=== PATIENT | male | born 1990 | race Caucasian/White ===

== ENCOUNTER 2021-02-01 17:06 | Outpatient (CLI) | payer OTHER, SELFPAY ==
--- NOTE | ~2021-02-01 | XR_ITS ---
EXAMINATION: XR chest 2V DATE: 02/01/2021 17:56 INDICATION: Spondyloarthritis TECHNIQUE: PA and lateral views of the chest are obtained. COMPARISON: None available FINDINGS: The lungs are free of acute opacities. There is no pleural effusion or pneumothorax. The ca rdiomediastinal silhouette is normal. The visualized bones and soft tissues are unremarkable. IMPRESSION: 1. No acute cardiopulmonary abnormality. Reviewed, dictated and finalized at location B.
--- NOTE | ~2021-02-01 | XR_ITS ---
EXAMINATION: XR ankle LT 2V, XR foot LT min 3V, XR foot RT min 3V, XR ankle RT 2V DATE: 02/01/2021 17:56 INDICATION: Spondylarthritis TECHNIQUE: 1. Anteroposterior and lateral view of the left ankle were obtained. 2. Dorsoplantar, two oblique and lateral views of the left foot were obtained. 3. Anteroposterior and lateral view of the right ankle were obtained. 4. Dorsoplantar, two oblique and lateral views of the right foot were obtained. COMPARISON: None. FINDINGS: Left foot and ankle: Alignment of the left foot and ankle is normal. No fracture or osteochondral lesion. Joint spaces are well maintained. No ankle joint effusion. Tiny plantar calcaneal spur. Bone island at the left calca neus. The soft tissues are unremarkable. Right foot and ankle: Alignment of the right foot and ankle is normal. No fracture or osteochondral lesion. Joint spaces ar e well maintained. No ankle joint effusion. Tiny plantar calcaneal spur. The soft tissues are unremar kable. IMPRESSION: 1. Tiny bilateral plantar calcaneal spurs. Otherwise unremarkable bilateral feet and ankle radiograph s Reviewed, dictated and finalized at location A. IMPRESSION: 1. Tiny bilateral plantar calcaneal spurs. Otherwise unremarkable bilateral fee t and ankle radiographs IMPRESSION: 1. Tiny bilateral plantar calcaneal spurs. Otherwise unremarkable bilateral fee t and ankle radiographs IMPRESSION: 1. Tiny bilateral plantar calcaneal spurs. Otherwise unremarkable bilateral fee t and ankle radiographs
--- NOTE | ~2021-02-01 | XR_ITS ---
EXAMINATION: HAND-VINCE ARTHRITIS 3+VIEWS DATE: 02/01/2021 17:56 INDICATION: Spondylarthritis TECHNIQUE: Posteroanterior, lateral, and oblique views of the left and of the right hands as well as a ballcatchers view of both hands were obtained. COMPARISON: None. FINDINGS: Bone alignment and joint spaces are normal at the bilateral hands and wrists. No fracture. No erosion s to suggest an inflammatory arthritis. Soft tissues are unremarkable. IMPRESSION: 1. Negative bilateral hand radiographs. Reviewed, dictated and finalized at location A.
== END 2021-02-01 17:07 ==
PROVIDERS: Visit Provider Physician Assistant Medical
DX: M47.819 Spondylosis without myelopathy or radiculopathy, site unspecified (principal); Z79.899 Other long term (current) drug therapy; M77.32 Calcaneal spur, left foot; M77.31 Calcaneal spur, right foot
CPT/HCPCS: 71046; 73130; 73600; 73630

== ENCOUNTER 2021-02-16 16:09 | Outpatient (CLI) | payer OTHER, SELFPAY ==
--- NOTE | ~2021-02-16 | XR_ITS ---
XR sacroiliac joints min 3V DATE: 02/16/2021 16:32 INDICATION: Low back pain TECHNIQUE: AP and oblique views COMPARISON: None FINDINGS: The sacral iliac joints are intact without fracture, dislocation, ankylosis or erosive laboy ge. The pubic symphysis is normally aligned. There is a prominent amount of fecal material in the col on. IMPRESSION: Negative sacroiliac joints Reviewed, dictated and finalized at Location A. Reviewed, dictated and finalized at location B. IMPRESSION: Negative sacroiliac joints
--- NOTE | ~2021-02-16 | XR_ITS ---
XR lumbar spine 2-3V DATE: 02/16/2021 16:32 INDICATION: Low back pain TECHNIQUE: AP, lateral, coned lateral lumbosacral views COMPARISON: None FINDINGS: Normal alignment of the lumbar spine. No fracture or bone destruction. The included lower t horacic and lumbar pedicles are intact. Lumbar and upper sacral interspaces are well preserved. The t he included portions of the sacral iliac joints appear normal. There is a prominent amount of fecal material in the colon. IMPRESSION: No significant abnormality of the lumbar spine Reviewed, dictated and finalized at location B.
== END 2021-02-16 16:10 ==
PROVIDERS: Visit Provider Physician Assistant Medical
DX: M47.819 Spondylosis without myelopathy or radiculopathy, site unspecified (principal); Z51.81 Encounter for therapeutic drug level monitoring; Z79.899 Other long term (current) drug therapy
CPT/HCPCS: 72100; 72202

== ENCOUNTER 2021-06-20 18:25 | Emergency (ER) | payer OTHER, SELFPAY ==
[2021-06-20 19:28] VITALS: BP 104/69; PULSE 105; RESP 17; TEMP 37.3; O2SAT 98
[2021-06-20 19:41] LABS: Basophils Percent Auto 0.2 % (0.2-1.2); Eosinophils Absolute Auto 0.1 K/mm3 (0-0.3); Eosinophils Percent Auto 0.4 % (0-4.4); Hematocrit 47.5 % (42.0-52.0); Hemoglobin 16.7 g/dL (14.0-18.0); Immature Granulocyte Absolute 0.05 K/mm3 (0.00-0.031); Immature Granulocyte Percent A 0.3 % (0-0.5); Lymphocytes Absolute Auto 0.27 K/mm3 (0.9-3.2); Lymphocytes Percent Auto 1.8 % (18.3-44.2); Mean Corpuscular HGB Conc 35.2 g/dl (32-36); Mean Corpuscular Hemoglobin 30.8 pg (26-34); Mean Corpuscular Volume 87.6 fl (80-100); Mean Platelet Volume 9.3 fl (7.4-10.4); Monocytes Absolute Auto 0.4 K/mm3 (0.1-0.6); Neutrophils Absolute Auto 13.9 K/mm3 (1.3-6.7); Neutrophils Percent Auto 94.3 % (45.5-73.1); Platelet Count Result 199 k/mm3 (150-375); Red Blood Count 5.42 M/mm3 (4.6-6.20); Red Cell Distribution Width 12.5 % (11.5-14.5); White Blood Count 14.7 K/mm3 (4.5-10.0)
[2021-06-20 19:50] LABS: Alanine Aminotransferase 16 U/L (4-50); Albumin Level 4.5 g/dL (3.5-5.1); Alkaline Phosphatase 53 U/L (38-126); Anion Gap 8 mmol/L (8-16); Aspartate Amino Transferase 33 U/L (17-59); Bilirubin,Total 1.9 mg/dL (0.2-1.3); Blood Urea Nitrogen 17 mg/dL (9-20); Calcium 9.3 mg/dL (8.4-10.2); Carbon Dioxide 27 mmol/L (22-30); Chloride 101 mmol/L (98-107); Estimated CRCL calculation 89 ml/min; Estimated Glomerular Filt Rate > 60; Glucose 105 mg/dL (65-110); Lipase 61 U/L (23-300); Potassium 3.8 mmol/L (3.4-5.0); Sodium 136 mmol/L (137-145)
--- NOTE | 2021-06-20 20:18 | ED.NAVMDI ---
HPI - Nausea/Vomiting/Diarrhea General Chief complaint: Nausea/Vomiting/Diarrhea Stated complaint: n/v Time Seen by Provider: 06/20/21 20:04 Source: patient History of Present Illness HPI Narrative: Patient presents with nausea vomiting and diarrhea. Patient ports he woke up with his symptoms of a persisted all day. Reports he had hard time keeping fluids down so he was concerned about dehydration came to the ER for evaluation. Reports multiple family members with similar symptoms he denies recent antibiotics he denies any blood or bile or melena he denies recent camping trips or drinking from streams. Reports subjective chills. Reports abdominal soreness in the epigastric area without radiation thought to be related to his emesis. Related Data Allergies Allergy/AdvReac Type Severity Reaction Status Date / Time No Known Allergies Allergy Verified 06/20/21 21:48 Review of Systems Review of Systems: CONSTITUTIONAL: Denies fever, chills, or sweats. EYES: Denies visual changes, redness, or discharge. ENT: Denies rhinorrhea, congestion, sore throat, or otalgia. CARDIOVASCULAR: Denies chest pain, palpitations, or edema. RESPIRATORY: Denies cough or dyspnea. GASTROINTESTINAL: Abdominal pain nausea vomiting diarrhea GENITOURINARY: Denies dysuria or hematuria. SKIN: Denies rash or itching. MUSCULOSKELETAL: Denies back pain, joint pain, or myalgia. NEUROLOGIC: Denies headache, numbness, dizziness, or weakness. PSYCHIATRIC: Denies anxiety or depression. All systems reviewed & are unremarkable except as noted in HPI and below PMFSH Past Medical History Medical History (Updated 06/21/21 @ 00:00 by Vida Hays) Patient denies significant medical history Social History Social History (Updated 06/20/21 @ 20:20 by Pranav Romero MD) Substance use: never Exam Narrative: GENERAL: Well-appearing, well-nourished, and in no acute distress. HEAD: Normocephalic, atraumatic. EYES: PERRLA and EOMI. ENT: Nares clear, no rhinorrhea or epistaxis. Mucous membranes moist. NECK: Supple. No masses. No JVD CHEST: Clear to auscultation. No respiratory distress. No wheezes rales or rhonchi HEART: Regular rate and rhythm. No murmur heard. Normal peripheral pulses. ABDOMEN: Minimal pain with deep palpation in the epigastric area negative Castro's no rebound or guarding soft, nondistended. EXTREMITIES: Normal range of motion. No edema. SKIN: Warm, dry, no rash. NEURO: No focal deficits. Alert and oriented x3. PSYCH: Normal mood and affect. Course Reevaluation(s) Reevaluation #1: Patient ports feeling much improved after fluids and Zofran. Labs reviewed with patient. Patient comfortable with outpatient plan. Date: 06/20/21 Time: 22:15 Vital Signs Vital signs: Vital Signs Temperature 37.3 C 06/20/21 19:28 Pulse Rate 105 H 06/20/21 19:28 Respiratory Rate 17 06/20/21 19:28 Blood Pressure 104/69 06/20/21 19:28 Pulse Oximetry 98 06/20/21 19:28 Temperature 37.3 C 06/20/21 19:28 Pulse Rate 100 06/20/21 23:06 Respiratory Rate 16 06/20/21 23:06 Blood Pressure 121/63 06/20/21 23:06 Pulse Oximetry 98 06/20/21 23:06 MDM - Nausea/Vomiting/Diarrhea MDM Narrative Medical decision making narrative: H&P as above, vss, pt looks clinically well, exam with nonacute abdomen, labs with leukocytosis otherwise clinically unremarkable, additional labs/img considered. symptomatic relief available as needed, patient treated with Zofran and fluids on reevaluation pt continues to looks clinically well, reports large improvement in symptoms. Suspect viral gastroenteritis given multiple family others with similar symptoms, dns severe sepsis, severe dehydration, perforation, small bowel obstruction, pancreatitis, appendicitis, cholecystitis. plan to tx/monitor as op w/ pcm f/u findings/plan discussed with pt, pt agree/comfortable with plan, return precautions given Lab Data Result diagrams: 06/20/21 19:34
[2021-06-20 21:45] VITALS: BP 108/70; PULSE 105; RESP 15; O2SAT 98
[2021-06-20] MEDS: SODIUM CHLORIDE 0.9% IV 1,000 ML 999 ML IV CONT (21:52)
[2021-06-20] MEDS: ONDANSETRON INJ 4 MG/2 ML VIAL IV PUSH (21:52)
[2021-06-20 21:54] LABS: Add Urine Microscopic? YES; Appearance Urine Clear (Clear); Bilirubin Urine Negative (Negative); Blood Urine Negative (Negative); Color Urine Yellow (Yellow); Glucose Urine UA Negative (Negative); Ketones Urine 2+ mg/dL (Negative); Leukocyte Esterase Ur Negative LEU/UL (Negative); Mucus Urine Few /lpf; Nitrate Urine Negative (Negative); Protein Urine Negative (Negative); RBC Urine 0-2 /hpf (0-2); Specific Grav Ur 1.026 (1.001-1.035); Squamous Epithelial Cell Urine Rare /hpf (Few); Urobilinogen Urine Negative mg/dL (<2.0); WBC Urine 0-3 /hpf
[2021-06-20 23:06] VITALS: BP 121/63; PULSE 100; RESP 16; O2SAT 98
== END 2021-06-20 23:11 | disposition home or self-care (01) ==
PROVIDERS: Emergency Provider Emergency Medicine; PCP Family Medicine
DX: R11.2 Nausea with vomiting, unspecified (principal); R10.9 Unspecified abdominal pain; R19.7 Diarrhea, unspecified
CPT/HCPCS: 36415; 80053; 81001; 83690; 85025; 96361; 96374; 99284; J2405; J7030

== ENCOUNTER 2023-05-08 15:56 | Outpatient (CLI) | payer OTHER, SELFPAY | END 2023-05-08 15:57 | PROVIDERS: PCP Physician Assistant Medical; Visit Provider Physician Assistant Medical | DX: M25.561 Pain in right knee (principal); M25.562 Pain in left knee; G89.29 Other chronic pain | CPT/HCPCS: 73562 ==